=== PATIENT | female | born 1955 ===

== ENCOUNTER → 2017-10-05 | Outpatient (CLI) | payer OTHER | END | disposition home or self-care (01) | LOC: LAB 07:43 | DX: E11.9 Type 2 diabetes mellitus without complications (principal); E78.4 Other hyperlipidemia; I10 Essential (primary) hypertension ==

== ENCOUNTER 2018-10-23 08:58 | Outpatient (CLI) | payer OTHER | END 2018-10-23 09:13 | disposition home or self-care (01) | LOC: TOM 08:58 | DX: R10.84 Generalized abdominal pain (principal) ==